=== PATIENT | male | born 1960 | race Hispanic/Latino ===

== ENCOUNTER 2021-07-23 18:41 | Observation (INO) | payer BC ==
[~2021-07-23] VITALS: Ht 185.4 cm; Wt 113.4 kg
[2021-07-23] MEDS ORDERED: GLUCAGON FOR INJ 1 MG VIAL IV ONE (19:15)
[2021-07-23] MEDS ORDERED: CALCIUM GLUCONATE 10% INJ 4.65 MEQ in SODIUM CHLORIDE 0.9% 50ML 50 ML IV ONE (19:15)
[2021-07-23 19:35] LABS: BASOPHILS % 0.4 % (0.0-1.0); EOSINOPHILS # (AUTO) 0.2 (0.0-0.4); EOSINOPHILS % 2.2 % (0.0-6.0); HEMATOCRIT 37.9 % (38.2-49.6); HEMOGLOBIN 12.7 g/dL (14.0-18.0); LYMPHOCYTES # (AUTO) 1.2 (1.0-3.2); LYMPHOCYTES % 17.9 % (18.0-39.1); MEAN CORPUSCULAR HGB CONC 33.5 g/dL (31-35); MEAN CORPUSCULAR VOLUME 92.4 fL (81-99); MONOCYTES # (AUTO) 0.6 (0.2-0.8); NEUTROPHILS # (AUTO) 4.9 (2.1-6.9); NEUTROPHILS % 71.1 % (38.7-80.0); PLATELET COUNT 188 x10e3/uL (140-360); RED CELL DISTRIBUTION WIDTH 12.8 % (11.7-14.4)
[2021-07-23 19:46] LABS: ALBUMIN/GLOBULIN RATIO 1.3 (0.8-2.0); ANION GAP 14.8 mmol/L (8-16); CALCIUM 9.4 mg/dL (8.4-10.2); CREATININE, SERUM 1.17 mg/dL (0.72-1.25); POTASSIUM 4.8 mmol/L (3.5-5.1)
[2021-07-23] MEDS ORDERED: SODIUM CHLORIDE FLUSH 10 ML SYR INJ PRN (20:00)
[2021-07-23] MEDS ORDERED: ASPIRIN 81 MG CHEW TAB PO ONE (20:00)
[2021-07-23 20:12] LABS: FREE THYROXINE INDEX 1.8746 (1.4-3.8); THYROID STIMULATING HORMONE 8.491 uIU/mL (0.350-4.940)
[2021-07-23 23:20] VITALS: BP 150/78
[2021-07-24] VITALS (7 sets, daily range): BP systolic 141–169; BP diastolic 78–88
[2021-07-24 05:38] LABS: BASOPHILS % 0.5 % (0.0-1.0); EOSINOPHILS # (AUTO) 0.1 (0.0-0.4); EOSINOPHILS % 2.2 % (0.0-6.0); HEMATOCRIT 40.4 % (38.2-49.6); HEMOGLOBIN 13.1 g/dL (14.0-18.0); LYMPHOCYTES # (AUTO) 1.5 (1.0-3.2); LYMPHOCYTES % 23.5 % (18.0-39.1); MEAN CORPUSCULAR HEMOGLOBIN 30.9 pg (28-32); MEAN CORPUSCULAR HGB CONC 32.4 g/dL (31-35); MEAN CORPUSCULAR VOLUME 95.3 fL (81-99); MONOCYTES # (AUTO) 0.6 (0.2-0.8); MONOCYTES % 9.1 % (4.4-11.3); NEUTROPHILS # (AUTO) 4.1 (2.1-6.9); NEUTROPHILS % 64.4 % (38.7-80.0); PLATELET COUNT 165 x10e3/uL (140-360); RED BLOOD COUNT 4.24 x10e6/uL (4.3-5.7); RED CELL DISTRIBUTION WIDTH 12.9 % (11.7-14.4)
[2021-07-24 06:05] LABS: ANION GAP 14.9 mmol/L (8-16); CREATININE, SERUM 1.13 mg/dL (0.72-1.25); POTASSIUM 4.9 mmol/L (3.5-5.1)
[2021-07-24 06:55] LABS: CREATINE KINASE MB 1.1 ng/mL (0-5.0)
[2021-07-24 12:35] LABS: CHOL/HDL RATIO 4.4 (3.9-4.7)
[2021-07-24] MEDS ORDERED: COZAAR100 MG PO (13:21)
[2021-07-24] MEDS ORDERED: ASPIRIN EC81 MG PO (13:23)
[2021-07-24] MEDS ORDERED: Atorvastatin PO (13:23)
[2021-07-24] MEDS ORDERED: PLAVIX75 MG PO (13:23)
[2021-07-24] MEDS ORDERED: TOPROL XL50 MG PO (13:29)
[2021-07-24] MEDS ORDERED: ATORVASTATIN 40 MG TAB PO SCH (21:00)
[2021-07-25] MEDS ORDERED: ASPIRIN 81 MG ENTERIC COATED PO SCH (09:00)
[2021-07-25] MEDS ORDERED: CLOPIDOGREL BISULFATE 75 MG TAB PO SCH (09:00)
[2021-07-25] MEDS ORDERED: LOSARTAN POTASSIUM 100 MG TAB PO SCH (09:00)
[2021-07-25] MEDS ORDERED: METOPROLOL SUCCINATE 50 MG TAB XL PO SCH (09:00)
== END 2021-07-24 14:00 | disposition home or self-care (01) ==
LOC: ER 19:15 → INTOOBSV 20:04 → ERHOLD 20:04 → MED/SURG 22:46
PROVIDERS: ADMIT Internal Medicine; ATTEND Internal Medicine
DX: I16.0 Hypertensive urgency (principal); R00.1 Bradycardia, unspecified; I25.10 Atherosclerotic heart disease of native coronary artery without angina pectoris; K21.9 Gastro-esophageal reflux disease without esophagitis; E78.5 Hyperlipidemia, unspecified; Z20.822 Contact with and (suspected) exposure to COVID-19; E03.9 Hypothyroidism, unspecified; J44.9 Chronic obstructive pulmonary disease, unspecified
CPT/HCPCS: 36415 ×2; 80048; 80053; 80061; 82550; 82553; 84436; 84443; 84479; 84484 ×2; 85025 ×2; 93005; 94799 ×2; 99284; G0378 ×2; J0610; J1610; U0002

== ENCOUNTER 2021-08-01 16:32 | Emergency (ER) | payer BC ==
[~2021-08-01 16:32] MED LIST: ASPIRIN EC81 MG PO; Atorvastatin PO; COZAAR100 MG PO; PLAVIX75 MG PO; TOPROL XL50 MG PO
[2021-08-01] MEDS ORDERED: METOPROLOL SUCC25 MG PO (16:47)
[2021-08-01 17:01] LABS: BASOPHILS % 0.6 % (0.0-1.0); EOSINOPHILS # (AUTO) 0.1 (0.0-0.4); EOSINOPHILS % 1.8 % (0.0-6.0); HEMATOCRIT 38.8 % (38.2-49.6); LYMPHOCYTES # (AUTO) 1.1 (1.0-3.2); LYMPHOCYTES % 15.6 % (18.0-39.1); MEAN CORPUSCULAR HGB CONC 33.5 g/dL (31-35); MEAN CORPUSCULAR VOLUME 92.4 fL (81-99); MONOCYTES # (AUTO) 0.6 (0.2-0.8); MONOCYTES % 8.9 % (4.4-11.3); NEUTROPHILS # (AUTO) 5.2 (2.1-6.9); PLATELET COUNT 211 x10e3/uL (140-360); RED CELL DISTRIBUTION WIDTH 13.1 % (11.7-14.4)
[2021-08-01] MEDS ORDERED: SODIUM CHLORIDE 0.9% 500ML 500 ML ONE (17:02)
[2021-08-01 17:17] LABS: ALBUMIN/GLOBULIN RATIO 1.1 (0.8-2.0); ANION GAP 10.1 mmol/L (8-16); CREATININE, SERUM 0.99 mg/dL (0.72-1.25); POTASSIUM 4.1 mmol/L (3.5-5.1)
== END 2021-08-01 18:11 | disposition home or self-care (01) ==
LOC: ER 17:28
DX: U07.1 COVID-19 (principal); R05.9 Cough, unspecified; R42 Dizziness and giddiness; R20.0 Anesthesia of skin; I10 Essential (primary) hypertension; E78.5 Hyperlipidemia, unspecified; I25.10 Atherosclerotic heart disease of native coronary artery without angina pectoris
CPT/HCPCS: 36415; 70450; 71045; 80053; 84484; 85025; 99284; J7040; U0002